=== PATIENT | male | born 1965 | race African-American/Black ===

== ENCOUNTER → 2017-09-04 | Day surgery (SDC) | payer OTHER ==
[2017-09-03 17:23] LABS: ANION GAP 11.1 mmol/L (8-16); BLOOD UREA NITROGEN 12 mg/dL (7-26); BUN/CREATININE RATIO 10 (6-25); CALCIUM 9.6 mg/dL (8.4-10.2); CARBON DIOXIDE 24 mmol/L (22-29); CHLORIDE 103 mmol/L (98-107); CREATININE, SERUM 1.21 mg/dL (0.72-1.25); EST GLOMERULAR FILTRATION RATE > 60 ML/MIN (60-); GLUCOSE 98 mg/dL (74-118); POTASSIUM 4.1 mmol/L (3.5-5.1); SODIUM 134 mmol/L (136-145)
[~2017-09-04] MED LIST: ATORVASTATIN CA40 MG PO; BACITRACIN 50,000 UNIT VIAL ONE; BUPIVACAINE HCL 0.5% INJ 30 ML VIAL INJ ONE; CEFAZOLIN SOD 1 GM VIAL ONE; DEXAMETHASONE SOD PHOS INJ 4 MG/ML VIAL ONE; FENTANYL CITRATE/PF 100MCG/2 ML INJ ONE; KETOROLAC TROMETHAMINE 30 MG/ML VIAL ONE; LIDOCAINE HCL 2% LOCAL INJ 5 ML SDV VIAL INJ ONE; LISINOPRIL5 MG PO; METFORMIN HCL850 MG PO; MIDAZOLAM HCL 2 MG/2 ML VIAL ONE; MUPIROCIN 2% OINT 22 GM TUBE ONE; NAPROXEN PO; NASACORT; ONDANSETRON HCL INJ 2 MG/ML VIAL ONE; PROPOFOL IV EMULSION 10 MG/ML 20 ML VIAL ONE; SAW PALMETTO450 MG PO; SEVOFLURANE INHAL SOLN 250 ML PEN BTL ONE
--- NOTE | 2017-09-04 08:11 | Operative Report ---
DATE OF PROCEDURE: September 04, 2017 PREOPERATIVE DIAGNOSIS: Left hallux rigidus. POSTOPERATIVE DIAGNOSIS: Left hallux rigidus. PLANNED PROCEDURE: Left Lozano bunionectomy with implant. SURGEON: Katie Lomas DPM PROCESS WORKER: Nathalie Waite DPM ANESTHESIA: General with a postoperative block consisting of 15 mL of 0.5% Marcaine plain mixed with 1 mL of dexamethasone phosphate. HEMOSTASIS: Pneumatic thigh tourniquet set at 350 mmHg for a total time of approximately 45 minutes. MATERIALS 1. 2-0 Vicryl. 2. 3-0 Vicryl. 3. 4-0 nylon. 4. One Melon #usemelon 5 Sheppard silastic implant. PATHOLOGY: None. DETAILS OF PROCEDURE: Patient was seen in the preoperative waiting where the correct procedure and site was identified. The patient was brought into the operating room and placed on the operating table in the supine position. General anesthesia was initiated at this time. A well-padded pneumatic tourniquet was placed about the patient's left thigh. The left foot, ankle and leg was scrubbed, prepped and draped in the usual aseptic manner. The left foot, ankle and leg was exsanguinated with an Esmarch bandage, and the pneumatic thigh tourniquet was inflated to 350 mmHg for a total time of approximately 45 minutes. Attention was directed to the dorsomedial aspect of the patient's left 1st metatarsophalangeal joint where a large dorsomedial prominence and dorsal spurring is noted. There is less than 5 degrees of range of motion at the metatarsophalangeal joint. A 6 cm curvilinear incision was made directly over the 1st metatarsophalangeal joint. The incision was carried through the subcutaneous tissues them from deeper underlying structures. All vital neurovascular structures were identified and retracted medially and laterally, and all bleeders were cauterized or ligated as deemed necessary. At this time, through the same incision a full lateral release was performed consisting of the deep transverse metatarsal ligament, lateral collateral ligament, as well as the fibular sesamoid ligament. The hallux was then put through a range of motion and found to be functioning in more proper anatomic alignment. Next, utilizing a #15 blade, a linear capsulotomy was performed at the level of metatarsophalangeal joint. The metatarsal head and base of the proximal phalanx was freed of all ligamentous attachments utilizing a McGlamry elevator. It should be noted that upon incision into the metatarsophalangeal joint, a moderate amount of synovial fluid was exuded from the joint, as well as a large dorsal osteophyte. The dorsal osteophyte was resected with a #15 blade and passed off to the back table. Utilizing a sagittal saw, the base of the proximal phalanx was resected and passed off to the back table, as well as the distal articular cartilage of the 1st metatarsal head, which was noted to be more than 90% damaged. The wound was then flushed with copious amounts of sterile saline. Utilizing a sagittal saw, the medial eminence, lateral eminence and dorsal eminence of the 1st metatarsal was resected and passed off to the back table and was smoothed to anatomic alignment utilizing an egg bur. Utilizing a side-cutting bur per jig and fixture maker protocol, guide holes were placed in the 1st metatarsal head, as well as the base of the proximal phalanx. Next, per jig and fixture maker protocol the grommets were placed in the 1st metatarsal head, as well as the base of the proximal phalanx. A #5 S-implant that had been soaked in Bacitracin for greater than 15 minutes was placed into the operative site. Correct positioning and location were confirmed via intraoperative fluoroscopy. The wound was then flushed with copious amounts of sterile saline. Capsular and deep tissue were reapproximated with 2-0 Vicryl, subcutaneous tissue with 3-0 Vicryl and skin was closed using a running interlocking stitch with 4-0 Prolene. The incision site was dressed with Adaptic, 4 x 4's, Kerlix, Mo wrap, and a postop shoe and a CAM walker boot. The patient tolerated the procedure and anesthesia well. Patient was transferred to the postoperative recovery unit with vital signs stable and vascular status intact. The patient was monitored there for a short period of time before being sent home with the following written and oral instructions: 1. Keep the dressing clean, dry and intact. 2. The patient is to remain partial weightbearing in a CAM walker boot and to avoid excessive ambulation until being seen in the office. 3. The patient was given the office number and was instructed to contact us if any problems should arise. DICTATED BY NATHALIE WAITE DPM Job#: [id number] JUAN DENNIS
== END | disposition home or self-care (01) ==
LOC: OR 07:03
PROVIDERS: ATTEND Podiatrist Foot & Ankle Surgery
DX: M20.22 Hallux rigidus, left foot (principal); M25.775 Osteophyte, left foot; I10 Essential (primary) hypertension; E11.9 Type 2 diabetes mellitus without complications; G47.33 Obstructive sleep apnea (adult) (pediatric); J45.909 Unspecified asthma, uncomplicated; Z01.810 Encounter for preprocedural cardiovascular examination; Z01.812 Encounter for preprocedural laboratory examination
CPT/HCPCS: 28295; 36415 ×2; 80048; 82948; 93005; C1776; J0690; J1100; J1885; J2001; J2250; J2405